=== PATIENT | female | born 1995 | race African-American/Black ===

== ENCOUNTER 2019-08-22 11:27 | Emergency (ER) | payer OTHER ==
--- NOTE | 2019-08-22 13:06 | ED ---
Influenza-Like Illness - HPI Summary HPI Summary: 23-year-old female presents to emergency department today complaining of 3 days of cough, fever, myalgia, shortness of breath, sore throat. Patient has not taken any medication prior to arrival. Patient states she is very comfortable and would like to know what is wrong. Patient states she has possible flu exposure stating that her brother was sick approximately one week ago. Patient otherwise feels well and denies chest pain, abdominal pain, pain with urination , nausea, vomiting, diarrhea. Surgical history and family history is noncontributory. - History of Current Complaint Chief Complaint: EDGeneral Time Seen by Provider: 08/22/19 12:46 Hx Obtained From: Patient Onset/Duration: Gradual Onset Severity: Moderate Associated Signs & Symptoms: Fever, Myalgia, Cough, Sore Throat, Nasal Congestion, Headache - Allergy/Home Medications Allergies/Adverse Reactions: Allergies Allergy/AdvReac Type Severity Reaction Status Date / Time diphenhydramine Allergy Shakes Verified 08/22/19 11:39 [From Benadryl] Home Medications: Home Medications Ibuprofen TAB* [Advil TAB*] 200 mg PO Q6H PRN 08/22/19 [History Confirmed ] Nyquil Cold And Flu 1 tab PO DAILY 08/22/19 [History Confirmed 08/22/19] PMH/Surg Hx/FS Hx/Imm Hx Infectious Disease History: No Infectious Disease History: Denies: Traveled Outside the [place] in Last 30 Days - Social History Alcohol Use: Occasionally Substance Use Type: Reports: None Smoking Status (MU): Never Smoked Tobacco Review of Systems Positive: Fever Eyes: Negative ENT: Negative Cardiovascular: Negative Positive: Cough Gastrointestinal: Negative Genitourinary: Negative Positive: Myalgia Skin: Negative Positive: Headache Psychological: Normal All Other Systems Reviewed And Are Negative: Yes Physical Exam Triage Information Reviewed: Yes Vital Signs On Initial Exam: Initial Vitals Temp Pulse Resp BP Pulse Ox 97.5 F 106 20 136/90 98 08/22/19 11:35 08/22/19 11:35 08/22/19 11:35 08/22/19 11:35 08/22/19 11:35 Vital Signs Reviewed: Yes Appearance: Positive: Well-Appearing, No Pain Distress, Well-Nourished Skin: Positive: Warm, Skin Color Reflects Adequate Perfusion Eyes: Positive: EOMI, CRISTHIAN ENT: Positive: Hearing grossly normal Respiratory/Lung Sounds: Positive: Clear to Auscultation, Breath Sounds Present Cardiovascular: Positive: RRR, S1, S2 Abdomen Description: Positive: Nontender, Soft Bowel Sounds: Positive: Present Musculoskeletal: Positive: Strength/ROM Intact Neurological: Positive: Sensory/Motor Intact, Alert, Oriented to Person Place, Time, Normal Gait, Facial Symmetry, Speech Normal Psychiatric: Positive: Normal, Affect/Mood Appropriate AVPU Assessment: Alert Procedures - Sedation Patient Received Moderate/Deep Sedation with Procedure: No Diagnostics - Vital Signs Vital Signs Temp Pulse Resp BP Pulse Ox 08/22/19 11:35 97.5 F 106 20 136/90 98 - Laboratory Lab Statement: Any lab studies that have been ordered have been reviewed, and results considered in the medical decision making process. Flu Symptom Course/Dx - Course Course Of Treatment: Patient was evaluated in the emergency department today for influenza-like illness. Vitals noted. Patient was given 800 mg of ibuprofen for headache and fever. Influenza serology returned showing positive influenza B. Patient has been symptomatic greater than 48 hours and was not a candidate for Tamiflu. Patient discharged with outpatient follow-up. - Diagnoses Differential Diagnosis/HQI/PQRI: Positive: Bronchitis, Influenza, Pneumonia, RSV , Upper Respiratory Infection Provider Diagnoses: Influenza B Discharge ED - Sign-Out/Discharge Documenting (check all that apply): Patient Departure - Discharge Plan Condition: Stable Disposition: HOME Patient Education Materials: Influenza (ED) Referrals: [facility] [Outside] - 3 Days No Primary Care Phys,NOPCP [Primary Care Provider] - Additional Instructions: You were seen in the emergency department today and diagnosed with influenza. This is an upper respiratory virus which causes cough, muscle aches, fever, nausea, trouble breathing. Viruses are self-limiting and will go away on their own. Be sure to stay hydrated and rest. You may take [id number] decongestants as needed for your symptoms as well as NyQuil at night to improve sleep. Take Tylenol every 6 hours as needed for fever. Please see your primary care physician in 5 days for further evaluation and management. Please do not return to work or school until 24 hours after your fever breaks. Please return to the emergency department immediately if you develop any new or worsening symptoms. - Billing Disposition and Condition Condition: STABLE Disposition: Home
[2019-08-22] MEDS ORDERED: Ibuprofen TAB* 800 MG PO ONE (13:25)
[2019-08-22 13:56] LABS: Influenza B Molecular POSITIVE (Negative)
[2019-08-22 14:20] VITALS: BP 114/65
== END 2019-08-22 14:19 | disposition home or self-care (01) ==
LOC: ED 11:27
DX: J10.1 Influenza due to other identified influenza virus with other respiratory manifestations (principal); R50.9 Fever, unspecified; R05 Cough; R09.81 Nasal congestion; R51 Headache; Z88.8 Allergy status to other drugs, medicaments and biological substances
CPT/HCPCS: 99282; A9270-GY